=== PATIENT | male | born 1955 | race African-American/Black ===

== ENCOUNTER 2017-11-24 10:47 | Emergency (ER) | payer MEDICAID ==
[~2017-11-24] VITALS: Ht 177.8 cm; Wt 90.0 kg
[2017-11-24 18:08] VITALS: BP 130/90
== END 2017-11-24 18:32 | disposition home or self-care (01) ==
LOC: ER 10:54
DX: F10.129 Alcohol abuse with intoxication, unspecified (principal); Y90.9 Presence of alcohol in blood, level not specified
CPT/HCPCS: 99283